=== PATIENT | male | born 1990 | race Caucasian/White ===

== ENCOUNTER 2017-06-27 11:51 | Emergency (ER) | payer MEDICAID ==
[~2017-06-27] VITALS: Wt 75.0 kg
[~2017-06-27 11:51] MED LIST: CLIN-73 PO
[2017-06-27] MEDS ORDERED: IBUPROFEN 600 MG TAB PO ONE (13:30)
--- NOTE | 2017-06-27 14:45 | RADRPT ---
PROCEDURE: XR Finger. CLINICAL INDICATION: Left fifth finger pain and trauma. TECHNIQUE: Three views of the left the fifth finger. COMPARISON: None. FINDINGS: The osseous structures are intact. No destructive bony lesions are observed. Interosseous spaces stephanie ear normal. The soft tissues are unremarkable. IMPRESSION: No visualized traumatic injury. If there is high clinical suspicion for traumatic injury, further evaluation with CT should be consi dered. RPTAT: AA .Guido Urias MD, Date Time Electronically viewed and signed by .Guido Urias MD, MD on 06/27/2017 14:45 .P/
[2017-06-27] MEDS ORDERED: IBUP400T22 PO (14:50)
--- NOTE | 2017-06-27 15:38 | ERD ---
ER Documentation Chief Complaint Date/Time DATE: 06/27/17 TIME: 15:33 Chief Complaint lac to pinky finger HPI This is a 27-year-old male presenting to emergency department after laceration and injury to left hand fifth digit. Patient states he was using a skill saw earlier today and accidentally lacerated his left fifth digit. Patient denies any loss of sensation. No limited mobility. Patient rating pain 7/10 to left fifth digit. Patient's last tetanus is up-to-date within the last 10 years. Did not take any medication at home. Does not take any medications regularly. No active bleeding. ROS All systems reviewed and are negative except as per history of present illness. Medications Home Meds Active Scripts Ibuprofen* (Motrin*) 400 Mg Tab, 400 MG PO Q6, #15 TAB Prov:SUSY MEAD NP 06/27/17 Clindamycin Hcl* (Clindamycin Hcl*) 300 Mg Capsule, 300 MG PO QID for 7 Days, CAP Prov:PANDA CURTIS 07/28/15 Allergies Allergies: Uncoded Allergies: SOME ANTIBX (Allergy, Unknown, 07/23/15) PMhx/Soc Medical and Surgical Hx: pt denies Medical Hx, pt denies Surgical Hx Hx Alcohol Use: No Hx Substance Use: No Hx Tobacco Use: No Smoking Status: Never smoker Physical Exam Vitals Vital Signs Date Time Temp Pulse Resp B/P Pulse Ox O2 Delivery O2 Flow Rate FiO2 06/27/17 12:02 98.0 68 20 118/76 100 Physical Exam Const: No acute distress, alert Head: Atraumatic Eyes: Normal Conjunctiva ENT: Normal External Ears, Nose and Mouth. Neck: Full range of motion..~ No meningismus. Resp: Clear to auscultation bilaterally Cardio: Regular rate and rhythm, no murmurs Abd: Soft, non tender, non distended. Normal bowel sounds Skin: No petechiae or rashes Back: No midline or flank tenderness Ext: No swelling. There is a 1 cm avulsion linear horizontal laceration to left 5th digit through nail. No active bleeding. Nail is intact. No open laceration. Capillary refill less than 3 seconds. Dried bloody drainage surrounding laceration. Neur: Awake and alert Psych: Normal Mood and Affect Results 24 hrs Current Medications Medications (Trade) Dose Ordered Sig/Anjel Route PRN Reason Start Time Stop Time Status Last Admin Dose Admin Ibuprofen (Motrin) 600 mg ONCE ONCE PO 06/27/17 13:30 06/27/17 13:31 DC 06/27/17 13:40 Procedures/MDM [place] [id number] Radiology Main Line: [phone] DIAGNOSTIC IMAGING REPORT Patient: DELVIN FULTON : 1990 Age: 27 Sex: M MR #: [id number] DOS: 06/27/17 1306 Ordering MD: SUSY MEAD NP Location: [facility] Room/Bed: PROCEDURE: XR Finger. CLINICAL INDICATION: Left fifth finger pain and trauma. TECHNIQUE: Three views of the left the fifth finger. COMPARISON: None. FINDINGS: The osseous structures are intact. No destructive bony lesions are observed. Interosseous spaces appear normal. The soft tissues are unremarkable. IMPRESSION: No visualized traumatic injury. If there is high clinical suspicion for traumatic injury, further evaluation with CT should be considered. MDM: This is a 27-year-old male presenting to emergency department after laceration to left fifth digit. Laceration superficial to left fifth digit.is no active bleeding on the ED. Wound is cleansed with normal saline while in ED. Upon reassessment, laceration is intact and there is no open areas. Wound is well approximated. No surrounding erythema, drainage, bleeding, warmth or abscess. X-ray left fifth digit reviewed by radiologist as no visualized traumatic injury. Diagnosis is laceration. Low suspicion for infection or deep laceration. Patient is appropriate for outpatient management instructed to return to ED in 2 days for wound check. Return to ED for any high fever, chest pain, difficulty breathing, shortness breath, wheezing, vomiting, diarrhea, abdominal pain or any new or worsening symptoms. Patient verbalizes understanding. All questions answered at discharge. Departure Diagnosis: Primary Impression: Laceration Condition: Stable Patient Instructions: Laceration, Hand [facility] Usted se puckett hecho un examen mdico de control que le indica que no est en nazanin condicin que requiera tratamiento urgente en el Departamento de Emergencia. Un estudio ms profundo y el tratamiento de sanchez condicin pueden esperar sin ningn riesgo hasta que usted sea atendida/o en el consultorio de sanchez mdico o nazanin cl alex. Es responsabilidad suya arreglar nazanin fam para el seguimiento del maury. MANEJO DE CONDICIONES NO URGENTES EN EL FUTURO 1) Si usted tiene un mdico de atencin primaria: Usted debera llamar a sanchez mdico de atencin primaria antes de venir al departamento de emergencia. Despus de las horas de consultorio, sanchez doctor o sanchez asociado/a est disponible por telfono. El mdico o enfermero de jamarcus en el servicio telefnico puede asesorarle por rozina medio para atender el problema, o maury contrario se puede programar nazanin fam. 2) Si usted no tiene un mdico de atencin primaria: Llame al mdico o clnica de referencia que aparece abajo kym las horas de consultorio para hacer nazanin fam para que le vean. CLINICAS: [facility] [phone] [facility] [phone] [address] [facility]. [facility] [phone] [address] [facility]. [place] [id number] [phone] [facility]. [place] [id number] [phone] [facility]. [phone] [address] [facility]. [facility] () Usted se puckett hecho un examen mdico de control que le indica que no est en nazanin condicin que requiera tratamiento urgente en el Departamento de Emergencia. Un estudio ms profundo y el tratamiento de sanchez condicin pueden esperar sin ningn riesgo hasta que usted sea atendida/o en el consultorio de sanchez mdico o nazanin cl laex. Es responsabilidad suya arreglar nazanin fam para el seguimiento del maury. MANEJO DE CONDICIONES NO URGENTES EN EL FUTURO 1) Si usted tiene un mdico de atencin primaria: Usted debera llamar a sanchez mdico de atencin primaria antes de venir al departamento de emergencia. Despus de las horas de consultorio, sanchez doctor o sanchez asociado/a est disponible por telfono. El mdico o enfermero de jamarcus en el servicio telefnico puede asesorarle por rozina medio para atender el problema, o maury contrario se puede programar nazanin fam. 2) Si usted no tiene un mdico de atencin primaria: Llame al mdico o condado institucions de referencia que aparece abajo kym las horas de consultorio para hacer nazanin fam para que le vean. SI USTED NO PUEDE PAGAR PARA SRINIVASAN UN MEDICO puede ir a: [facility] [id number] [place] [address] [facility] [address] [place] [address] [facility] [address] [place] [address] PARA DAVIN [facility] [address] [place], [place] [phone] Additional Instructions: Llame al doctor MAANA y bhupinder nazanin FAM PARA DENTRO DE 2-3 CHARLES.Dgale a la secretaria que nosotros le instruimos hacer esta fam.Avise o llame si sanchez condicin se empeora antes de la fam. Regresa aqui si peor o no mejor. SUSY MEAD NP Jun 27, 2017 15:37
== END 2017-06-27 15:22 | disposition home or self-care (01) ==
LOC: FTE 11:51
DX: S61.217A Laceration without foreign body of left little finger without damage to nail, initial encounter (principal); W27.0XXA Contact with workbench tool, initial encounter; Y92.9 Unspecified place or not applicable
CPT/HCPCS: 73140; Z7502; Z7610